=== PATIENT | female | born 1975 | race Caucasian/White ===

== ENCOUNTER 2016-06-08 08:00 | Outpatient (RCR) | payer OTHER ==
[2016-05-18] VITALS (13 sets, daily range): BP systolic 107–127; BP diastolic 60–70; PULSE 50–78; TEMP 97.6–98.5
[2016-05-18 07:48] LABS: BASO % 0.3 % (0.0-2.0); EOS # 0.6 (0.0-0.7); EOS % 4.7 % (0-4.0); GRAN % 68.6 % (42.2-75.2); HEMATOCRIT 45.3 % (37.0-47.0); HEMOGLOBIN 15.3 g/dl (12.5-16.0); LYMPH # 2.5 (1.2-3.4); LYMPH % 21.7 % (20.0-51.0); MEAN CELL VOLUME 92 fl (80.0-100.0); MEAN CORPUSCULAR HEMOGLOBIN 31 pg (27.0-31.0); MEAN CORPUSCULAR HGB CONC 34 g/dl (33.0-37.0); MEAN PLATELET VOLUME 9.8 fl (7.4-10.4); MONO # 0.5 (0.1-0.6); MONO % 4.4 % (1.7-9.3); PLATELET COUNT 397 K/mm3 (130-400); RED BLOOD COUNT 4.94 M/mm3 (4.10-5.30); REDCELL DISTRIBUTION WIDTH-CV 12.8 % (11.5-14.5); WHITE BLOOD COUNT 11.6 K/mm3 (4.8-10.8)
[2016-05-18 07:50] LABS: CALCIUM 9.8 mg/dL (8.4-10.2); CREATININE, serum 0.51 mg/dL (0.52-1.25)
[2016-05-25] VITALS (9 sets, daily range): BP systolic 110–141; BP diastolic 49–94; PULSE 62–104; TEMP 97.5–98.1
[2016-06-01] VITALS (8 sets, daily range): BP systolic 98–123; BP diastolic 46–70; PULSE 63–71; TEMP 97.8–98.5
[~2016-06-08] VITALS: Ht 170.2 cm; Wt 103.4 kg
[2016-06-08] VITALS (8 sets, daily range): BP systolic 102–123; BP diastolic 44–70; PULSE 64–68; TEMP 97.6–99.1
[~2016-06-08 08:00] MED LIST: ALBUTEROL0.09 MG/A3 IH; CIPRO 500MG TA500 MG PO; DEMADEX5 MG PO; FISH OIL 1000MG1 CAP PO; FLAGYL500 MG PO; LIPITOR 10MG10 MG PO; LORTAB 7.5/5001 TAB; MULTIPLE VITAMI1 CAP PO; NEXIUM 20MG20 MG PO; NORCO 325 MG-51 TAB PO; PROAIR HFA0.09 MG/AC IH; SYMBICORT1 AE2 IH; TRIAMTERENE/HCT1 TAB PO; ULTRAM ER200 MG PO; VITAMIN D2000 I1 PO; VITAMIN D32000 IU PO; ZESTRIL 5MG5 MG PO
== END 2016-08-16 | disposition home or self-care (01) ==
LOC: EUO
PROVIDERS: Family Medicine
DX: Z51.11 Encounter for antineoplastic chemotherapy (principal); C76.8 Malignant neoplasm of other specified ill-defined sites
CPT/HCPCS: J2930; J7040; J9310

== ENCOUNTER → 2017-01-31 | Outpatient (CLI) | payer OTHER | LOC: MC.RAD 13:20 | DX: Z12.31 Encounter for screening mammogram for malignant neoplasm of breast (principal) ==

== ENCOUNTER → 2017-02-21 | Outpatient (CLI) | payer OTHER | LOC: COL.RAD 13:44 | DX: M25.552 Pain in left hip (principal) | CPT/HCPCS: A9585; Q9967 ==

== ENCOUNTER → 2018-05-23 | Outpatient (CLI) | payer OTHER | LOC: COL.RAD 14:45 | DX: M87.821 Other osteonecrosis, right humerus (principal) ==